=== PATIENT | male | born 1935 | race Caucasian/White ===

== ENCOUNTER 2021-04-15 11:16 | Inpatient (IN) ==
[2021-04-15 17:53] LABS: ABS Eosinophils 0.1 10^3/ul (0-0.6); ABS Lymphocytes 1.9 10^3/ul (1.0-4.8); ABS Monocytes 0.9 10^3/ul (0-0.8); ABS Neutrophils 5.9 10^3/ul (1.5-7.7); Eosinophil % 1.6 %; Hematocrit 33 % (42-52); Mean Corpuscular HGB Conc 34 g/dL (31-36); Mean Corpuscular Hemoglobin 30 pg (27-31); Mean Corpuscular Volume 89 fL (80-94); Mean Platelet Volume 8.8 fL (7.4-10.4); Platelet Count 232 10^3/uL (150-450); Red Blood Count 3.69 10^6 /uL (4.18-5.48); Red Cell Distribution Width 14 % (10-15); White Blood Count 8.8 10^3/uL (3.5-10.8)
[2021-04-15 18:06] LABS: ALT 16 U/L (7-52); AST 16 U/L (13-39); Albumin 4.2 g/dL (3.2-5.2); Albumin/Globulin Ratio 1.6 (1-3); Alkaline Phosphatase 59 U/L (35-149); Anion Gap 10 mmol/L (2-11); Blood Urea Nitrogen 128 mg/dL (6-24); CO2 Carbon Dioxide 21 mmol/L (22-32); Calcium 9.1 mg/dL (8.6-10.3); Chloride 107 mmol/L (101-111); Globulin 2.6 g/dL (2-4); Glucose 144 mg/dL (70-100); Potassium 5.3 mmol/L (3.5-5.0); Sodium 138 mmol/L (135-145); Total Protein 6.8 g/dL (6.4-8.9)
[2021-04-15 18:06] LABS: Urine Appearance Cloudy; Urine Bilirubin Negative (Negative); Urine Blood Negative (Negative); Urine Color Yellow; Urine Glucose Negative (Negative); Urine Ketones Negative (Negative); Urine Nitrite Negative (Negative); Urine Protein 1+(30 mg/dL) (Negative); Urine Specific Gravity 1.011 (1.002-1.030); Urine Urobilinogen Negative (Negative)
[2021-04-15 18:18] LABS: Urine Bacteria Absent (Absent); Urine Red Blood Cell Absent (Absent); Urine Squamous Epithelial Cell Present (Absent); Urine White Blood Cell Trace(0-5/hpf) (Absent)
[2021-04-15] MEDS ORDERED: Magnesium Hydroxide LIQ 30 ML UDC PO PRN (21:15)
[2021-04-15] MEDS ORDERED: Dextrose 50% Syringe 50 ml 25 GM/50 ML SYRINGE IV PUSH PRN (21:24)
[2021-04-15] MEDS ORDERED: NS 0.9% 1000 ml BAG 1,000 ML IV SCH (21:30)
[2021-04-15 21:54] LABS: % Iron Saturation 22 % (15-55); Iron 98 ug/dL (50-212); Total Iron Binding Capacity 449 mcg/dL (250-450); Transferrin 321 mg/dL (203-362); Unsaturated Iron Binding < 434 ug/dL
[2021-04-15 22:20] LABS: Vitamin B12 405 pg/mL (180-914)
[2021-04-15] MEDS: Enoxaparin 30 MG/0.3 ML SYR SUBCUT SCH (22:20)
[2021-04-15 22:21] LABS: Folate 15.56 ng/mL (5.90-24.80)
[2021-04-15 22:48] LABS: Rapid COVID-19 Molecular Undetected (Undetected)
[2021-04-16] MEDS: Fluticasone NASAL SPRAY 50MCG 16 gm SPRAY BTL INTRANASAL SCH (07:35)
[2021-04-16] MEDS: Insulin GLARGINE 100 un/ml 10 ml VIAL SUBCUT SCH (07:35)
[2021-04-16] MEDS: Aspirin EC 81 mg TAB.EC (enteric coated) PO SCH (07:35)
[2021-04-16 08:30] LABS: ABS Eosinophils 0.1 10^3/ul (0-0.6); ABS Lymphocytes 1.3 10^3/ul (1.0-4.8); ABS Monocytes 0.6 10^3/ul (0-0.8); ABS Neutrophils 3.9 10^3/ul (1.5-7.7); Hematocrit 31 % (42-52); Hemoglobin 10.4 g/dL (14.0-18.0); Mean Corpuscular HGB Conc 34 g/dL (31-36); Mean Corpuscular Hemoglobin 30 pg (27-31); Mean Corpuscular Volume 89 fL (80-94); Mean Platelet Volume 8.7 fL (7.4-10.4); Platelet Count 206 10^3/uL (150-450); Red Blood Count 3.46 10^6 /uL (4.18-5.48); Red Cell Distribution Width 14 % (10-15); White Blood Count 5.9 10^3/uL (3.5-10.8)
[2021-04-16 13:26] LABS: Calcium 9.2 mg/dL (8.6-10.3)
[2021-04-16] MEDS: Enoxaparin 30 MG/0.3 ML SYR SUBCUT SCH (21:00)
[2021-04-17 06:59] LABS: Magnesium 2.1 mg/dL (1.9-2.7)
[2021-04-17 07:00] LABS: Potassium 5.3 mmol/L (3.5-5.0)
[2021-04-17] MEDS: Fluticasone NASAL SPRAY 50MCG 16 gm SPRAY BTL INTRANASAL SCH (09:46)
[2021-04-17] MEDS: Insulin GLARGINE 100 un/ml 10 ml VIAL SUBCUT SCH (09:47)
[2021-04-17] MEDS: Aspirin EC 81 mg TAB.EC (enteric coated) PO SCH (09:47)
[2021-04-17 15:56] LABS: Calcium 8.8 mg/dL (8.6-10.3); Potassium 5.2 mmol/L (3.5-5.0)
[2021-04-17 17:01] VITALS: BP 140/49
== END 2021-04-17 17:30 | disposition home or self-care (01) | DRG 684 ==
LOC: ED 11:16 → SUATTDRO 21:15 → MEDTELE 21:15
PROVIDERS: ADMIT Internal Medicine; ATTEND Student in an Organized Health Care Education/Training Program

== ENCOUNTER 2021-11-16 11:29 | Inpatient (IN) ==
[2021-11-16 12:40] LABS: ABS Eosinophils 0.1 10^3/ul (0-0.6); ABS Lymphocytes 1.1 10^3/ul (1.0-4.8); ABS Monocytes 0.8 10^3/ul (0-0.8); Eosinophil % 0.9 %; Hematocrit 32 % (42-52); Hemoglobin 10.4 g/dL (14.0-18.0); Lymphocyte % 12.2 %; Mean Corpuscular HGB Conc 33 g/dL (31-36); Mean Corpuscular Hemoglobin 28 pg (27-31); Mean Corpuscular Volume 85 fL (80-94); Mean Platelet Volume 9.1 fL (7.4-10.4); Platelet Count 234 10^3/uL (150-450); Red Blood Count 3.73 10^6 /uL (4.18-5.48); Red Cell Distribution Width 17 % (10-15)
[2021-11-16 12:46] LABS: INR 1.12 (0.86-1.15)
[2021-11-16] MEDS ORDERED: Furosemide 40 mg/4 ml IV VIAL IV ONE (13:02)
[2021-11-16 13:04] LABS: Urine Appearance Clear; Urine Bacteria Absent (Absent); Urine Bilirubin Negative (Negative); Urine Blood Negative (Negative); Urine Color Yellow; Urine Glucose Negative (Negative); Urine Ketones Negative (Negative); Urine Nitrite Negative (Negative); Urine Protein Negative (Negative); Urine Red Blood Cell Absent (Absent); Urine Specific Gravity 1.009 (1.002-1.030); Urine Urobilinogen Negative (Negative); Urine White Blood Cell Trace(0-5/hpf) (Absent)
[2021-11-16] MEDS ORDERED: Enoxaparin 60 MG/0.6 ML SYR SUBCUT ONE (13:09)
[2021-11-16 13:35] LABS: Albumin 4.4 g/dL (3.2-5.2); C Reactive Protein 7.45 mg/L (<8.01); Calcium 9.4 mg/dL (8.6-10.3); Globulin 2.2 g/dL (2-4); Potassium 4.4 mmol/L (3.5-5.0); Total Bilirubin 0.6 mg/dL (0.2-1.0); Total Protein 6.6 g/dL (6.4-8.9); eGFR CKD-EPI 17.6 (>60)
[2021-11-16 14:13] LABS: High Sensitivity Troponin 1 Hr 9 pg/mL (<20)
[2021-11-16] MEDS ORDERED: Dextrose 50% Syringe 50 ml 25 GM/50 ML SYRINGE IV PUSH PRN (16:26)
[2021-11-16 18:06] LABS: ABS Eosinophils 0.1 10^3/ul (0-0.6); ABS Lymphocytes 1.1 10^3/ul (1.0-4.8); ABS Monocytes 0.8 10^3/ul (0-0.8); ABS Neutrophils 6.3 10^3/ul (1.5-7.7); Eosinophil % 1.2 %; Hematocrit 30 % (42-52); Hemoglobin 9.7 g/dL (14.0-18.0); Lymphocyte % 13.1 %; Mean Corpuscular HGB Conc 33 g/dL (31-36); Mean Corpuscular Hemoglobin 28 pg (27-31); Mean Corpuscular Volume 85 fL (80-94); Platelet Count 225 10^3/uL (150-450); Red Blood Count 3.48 10^6 /uL (4.18-5.48); Red Cell Distribution Width 17 % (10-15); White Blood Count 8.3 10^3/uL (3.5-10.8)
[2021-11-16 18:16] LABS: Activated Partial Thrombo Time 37.9 seconds (26.0-38.0); INR 1.15 (0.86-1.15)
[2021-11-16 18:24] LABS: Ferritin 42.9 ng/mL (24-336)
[2021-11-16 18:39] LABS: eGFR CKD-EPI 17.4 (>60)
[2021-11-16] MEDS: Heparin 5000 UNITS/ML 1 mL VIAL SUBCUT SCH (22:14)
[2021-11-16] MEDS: Furosemide 40 mg/4 ml IV VIAL IV SLOW PU SCH (22:14)
[2021-11-17] MEDS: Heparin 5000 UNITS/ML 1 mL VIAL SUBCUT SCH ×3 (05:15→21:14)
[2021-11-17 06:10] LABS: ABS Eosinophils 0.1 10^3/ul (0-0.6); ABS Lymphocytes 0.9 10^3/ul (1.0-4.8); ABS Monocytes 0.8 10^3/ul (0-0.8); ABS Neutrophils 5.1 10^3/ul (1.5-7.7); Eosinophil % 0.9 %; Hematocrit 29 % (42-52); Hemoglobin 9.2 g/dL (14.0-18.0); Lymphocyte % 13.3 %; Mean Corpuscular HGB Conc 32 g/dL (31-36); Mean Corpuscular Hemoglobin 27 pg (27-31); Mean Corpuscular Volume 84 fL (80-94); Nucleated Red Blood Cells % 0.1; Platelet Count 207 10^3/uL (150-450); Red Blood Count 3.39 10^6 /uL (4.18-5.48); Red Cell Distribution Width 17 % (10-15); White Blood Count 6.9 10^3/uL (3.5-10.8)
[2021-11-17 06:35] LABS: Calcium 8.9 mg/dL (8.6-10.3); Potassium 4.4 mmol/L (3.5-5.0); eGFR CKD-EPI 18.5 (>60)
[2021-11-17 07:33] LABS: HDL Cholesterol 35.3 mg/dL
[2021-11-17] MEDS: Aspirin EC 81 mg TAB.EC (enteric coated) PO SCH (08:48)
[2021-11-17] MEDS: Furosemide 40 mg/4 ml IV VIAL IV SLOW PU SCH ×2 (08:49→21:14)
[2021-11-17] MEDS ORDERED: Ferric Gluconate IV 125 MG in NS 0.9% 100 ml BAG 100 ML IVPB ONE (14:56)
[2021-11-18 00:15] LABS: Urine Appearance Clear; Urine Blood 3+ (Negative); Urine Color Yellow; Urine Ketones Negative (Negative); Urine Protein 1+(30 mg/dL) (Negative); Urine Specific Gravity 1.012 (1.002-1.030); Urine Urobilinogen Negative (Negative); Urine pH 5 (5-9)
[2021-11-18 00:16] LABS: Urine Bilirubin Negative (Negative); Urine Glucose Negative (Negative); Urine Nitrite Negative (Negative)
[2021-11-18 00:41] LABS: Urine Bacteria Absent (Absent); Urine Red Blood Cell 3+(>10/hpf) (Absent); Urine White Blood Cell 1+(6-10/hpf) (Absent)
[2021-11-18] MEDS: Heparin 5000 UNITS/ML 1 mL VIAL SUBCUT SCH ×3 (05:46→21:05)
[2021-11-18 06:38] LABS: ABS Eosinophils 0.2 10^3/ul (0-0.6); ABS Lymphocytes 1.2 10^3/ul (1.0-4.8); ABS Monocytes 0.7 10^3/ul (0-0.8); ABS Neutrophils 3.7 10^3/ul (1.5-7.7); Eosinophil % 2.9 %; Hematocrit 27 % (42-52); Lymphocyte % 20.8 %; Mean Corpuscular HGB Conc 33 g/dL (31-36); Mean Corpuscular Hemoglobin 28 pg (27-31); Mean Corpuscular Volume 84 fL (80-94); Mean Platelet Volume 9.1 fL (7.4-10.4); Platelet Count 209 10^3/uL (150-450); Red Blood Count 3.22 10^6 /uL (4.18-5.48); Red Cell Distribution Width 17 % (10-15); White Blood Count 5.8 10^3/uL (3.5-10.8)
[2021-11-18 06:54] LABS: Potassium 4.1 mmol/L (3.5-5.0)
[2021-11-18] MEDS ORDERED: Iron Sucrose 200 MG in NS 0.9% 100 ml BAG 100 ML IVPB ONE (07:28)
[2021-11-18 07:53] LABS: Calcium 8.8 mg/dL (8.6-10.3)
[2021-11-18 07:59] LABS: eGFR CKD-EPI 19.2 (>60)
[2021-11-18] MEDS: Aspirin EC 81 mg TAB.EC (enteric coated) PO SCH (08:34)
[2021-11-18] MEDS: Furosemide 40 mg/4 ml IV VIAL IV SLOW PU SCH (08:34)
[2021-11-18 16:53] LABS: Body Fluid Appearance Clear; Body Fluid Color Yellow; Body Fluid Source Pleural Fluid
[2021-11-18 17:22] LABS: Body Fluid WBC 159 /mcL
[2021-11-18 17:54] LABS: Body Fluid Mono 56 %; Body Fluid Other Cells 5; Body Fluid Total Cells Counted 200
[2021-11-19] MEDS: Heparin 5000 UNITS/ML 1 mL VIAL SUBCUT SCH ×3 (05:59→21:40)
[2021-11-19 06:07] LABS: ABS Eosinophils 0.2 10^3/ul (0-0.6); ABS Lymphocytes 1.4 10^3/ul (1.0-4.8); ABS Monocytes 0.8 10^3/ul (0-0.8); ABS Neutrophils 4.1 10^3/ul (1.5-7.7); Hematocrit 28 % (42-52); Hemoglobin 9.3 g/dL (14.0-18.0); Lymphocyte % 21.3 %; Mean Corpuscular HGB Conc 33 g/dL (31-36); Mean Corpuscular Hemoglobin 27 pg (27-31); Mean Corpuscular Volume 84 fL (80-94); Mean Platelet Volume 8.6 fL (7.4-10.4); Platelet Count 199 10^3/uL (150-450); Red Blood Count 3.38 10^6 /uL (4.18-5.48); Red Cell Distribution Width 17 % (10-15); White Blood Count 6.5 10^3/uL (3.5-10.8)
[2021-11-19 06:30] LABS: Calcium 8.6 mg/dL (8.6-10.3); Magnesium 1.9 mg/dL (1.9-2.7); Potassium 4.1 mmol/L (3.5-5.0); eGFR CKD-EPI 19.2 (>60)
[2021-11-19] MEDS: Aspirin EC 81 mg TAB.EC (enteric coated) PO SCH (09:13)
[2021-11-19] MEDS ORDERED: Senna TAB 8.6 mg TAB PO PRN (10:37)
[2021-11-19] MEDS: Magnesium Hydroxide LIQ 30 ML UDC PO SCH ×2 (12:28→21:40)
[2021-11-19] MEDS ORDERED: Senna TAB 8.6 mg TAB PO SCH (21:00)
[2021-11-20] MEDS: Heparin 5000 UNITS/ML 1 mL VIAL SUBCUT SCH (05:35)
[2021-11-20 06:48] LABS: ABS Eosinophils 0.2 10^3/ul (0-0.6); ABS Lymphocytes 1.5 10^3/ul (1.0-4.8); ABS Monocytes 0.6 10^3/ul (0-0.8); ABS Neutrophils 3.5 10^3/ul (1.5-7.7); Eosinophil % 3.8 %; Hematocrit 31 % (42-52); Lymphocyte % 25.1 %; Mean Corpuscular HGB Conc 33 g/dL (31-36); Mean Corpuscular Hemoglobin 28 pg (27-31); Mean Corpuscular Volume 85 fL (80-94); Mean Platelet Volume 8.6 fL (7.4-10.4); Platelet Count 232 10^3/uL (150-450); Red Blood Count 3.62 10^6 /uL (4.18-5.48); Red Cell Distribution Width 17 % (10-15); White Blood Count 5.8 10^3/uL (3.5-10.8)
[2021-11-20 06:57] LABS: Calcium 8.9 mg/dL (8.6-10.3); Potassium 4.2 mmol/L (3.5-5.0); eGFR CKD-EPI 22.8 (>60)
[2021-11-20] MEDS: Aspirin EC 81 mg TAB.EC (enteric coated) PO SCH (07:44)
[2021-11-20] MEDS: Magnesium Hydroxide LIQ 30 ML UDC PO SCH ×2 (07:44→07:49)
[2021-11-20] MEDS ORDERED: Iron Sucrose 200 MG in NS 0.9% 100 ml BAG 100 ML IVPB ONE (09:00)
[2021-11-20 11:30] VITALS: BP 133/47
[2021-11-20 13:43] LABS: Glucose, BF 190 mg/dL
[2021-11-20 13:44] LABS: Fluid Type, Amylase PLEURAL
[2021-11-20 13:47] LABS: Lactate Dehydrogenase, BF 72 U/L
[2021-11-20 13:48] LABS: Fluid Type, Protein, Total PLEURAL; Total Protein, BF 2.8 g/dL
== END 2021-11-20 12:45 | disposition home or self-care (01) | DRG 292 ==
LOC: ED 11:29 → EDHOLD 15:33 → MEDTELE 16:23
PROVIDERS: ADMIT Internal Medicine; ATTEND Internal Medicine

== ENCOUNTER 2022-02-21 07:18 | Observation (INO) ==
[2022-02-21] MEDS ORDERED: NS 0.9% 1000 ml BAG 1,000 ML IV ONE (07:47)
[2022-02-21 07:49] LABS: ABS Eosinophils 0.1 10^3/ul (0-0.6); ABS Lymphocytes 1.2 10^3/ul (1.0-4.8); ABS Monocytes 0.8 10^3/ul (0-0.8); ABS Neutrophils 6.1 10^3/ul (1.5-7.7); Eosinophil % 0.8 %; Hematocrit 35 % (42-52); Hemoglobin 11.8 g/dL (14.0-18.0); Lymphocyte % 14.9 %; Mean Corpuscular HGB Conc 34 g/dL (31-36); Mean Corpuscular Hemoglobin 28 pg (27-31); Mean Corpuscular Volume 83 fL (80-94); Platelet Count 249 10^3/uL (150-450); Red Blood Count 4.18 10^6 /uL (4.18-5.48); Red Cell Distribution Width 15 % (10-15); White Blood Count 8.2 10^3/uL (3.5-10.8)
[2022-02-21 08:28] LABS: Albumin 4.1 g/dL (3.2-5.2); Albumin/Globulin Ratio 1.5 (1-3); Calcium 9.4 mg/dL (8.6-10.3); Globulin 2.7 g/dL (2-4); Potassium 3.1 mmol/L (3.5-5.0); Total Bilirubin 0.6 mg/dL (0.2-1.0); Total Protein 6.8 g/dL (6.4-8.9); eGFR CKD-EPI 12.9 (>60)
[2022-02-21 09:20] LABS: High Sensitivity Troponin 1 Hr 17 pg/mL (<20)
[2022-02-21] MEDS ORDERED: Nitroglycerin 0.6 mg TAB SL ONE (09:47)
[2022-02-21] MEDS ORDERED: Nitro 2% OINT (Nitroglycerin) 1 INCH/PAK TOPICAL ONE (10:13)
[2022-02-21] MEDS ORDERED: Potassium EFFERVES 25 meq TAB PO ONE (10:21)
[2022-02-21] MEDS: Heparin 5000 UNITS/ML 1 mL VIAL SUBCUT SCH ×2 (17:06→20:00)
[2022-02-21] MEDS ORDERED: Insulin GLARGINE 100 un/ml 10 ml VIAL SUBCUT SCH (21:00)
[2022-02-21] MEDS ORDERED: Senna TAB 8.6 mg TAB PO SCH (21:00)
[2022-02-22 05:42] LABS: ABS Eosinophils 0.1 10^3/ul (0-0.6); ABS Lymphocytes 1.5 10^3/ul (1.0-4.8); ABS Monocytes 0.7 10^3/ul (0-0.8); Eosinophil % 1.7 %; Hematocrit 30 % (42-52); Hemoglobin 10.3 g/dL (14.0-18.0); Lymphocyte % 23.4 %; Mean Corpuscular HGB Conc 34 g/dL (31-36); Mean Corpuscular Hemoglobin 29 pg (27-31); Mean Corpuscular Volume 84 fL (80-94); Mean Platelet Volume 8.3 fL (7.4-10.4); Platelet Count 222 10^3/uL (150-450); Red Cell Distribution Width 15 % (10-15); White Blood Count 6.3 10^3/uL (3.5-10.8)
[2022-02-22] MEDS: Heparin 5000 UNITS/ML 1 mL VIAL SUBCUT SCH (05:56)
[2022-02-22 06:06] LABS: Calcium 8.8 mg/dL (8.6-10.3); Potassium 3.5 mmol/L (3.5-5.0); eGFR CKD-EPI 13.5 (>60)
[2022-02-22] MEDS ORDERED: Aspirin EC 81 mg TAB.EC (enteric coated) PO SCH (09:00)
[2022-02-22] MEDS ORDERED: Fluticasone NASAL SPRAY 50MCG 16 gm SPRAY BTL INTRANASAL SCH (09:00)
[2022-02-22] MEDS ORDERED: Regadenoson 0.4 MG/5 ML SYRINGE ONE (12:28)
[2022-02-22 13:30] VITALS: BP 123/47
[2022-02-22 13:53] LABS: Urine Appearance Clear; Urine Bilirubin Negative (Negative); Urine Color Colorless; Urine Glucose Negative (Negative); Urine Ketones Negative (Negative); Urine Specific Gravity 1.015 (1.005-1.030)
[2022-02-22 13:54] LABS: Urine Blood Trace (Lysed) (Negative); Urine Nitrite Negative (Negative); Urine Protein 1+ (30 mg/dL) (Negative); Urine Urobilinogen 0.2 (Negative) (Negative)
[2022-02-22 14:27] LABS: Urine Bacteria Absent (Absent); Urine Red Blood Cell Trace(0-2/hpf) (Absent); Urine White Blood Cell Trace(0-5/hpf) (Absent)
== END 2022-02-22 15:30 | disposition home or self-care (01) ==
LOC: EDHOLD 07:18 → ED 07:18 → SUATTDRO 10:53 → EDHOLD 17:37 → MEDTELE 17:49
PROVIDERS: ADMIT Internal Medicine; ATTEND Internal Medicine

== ENCOUNTER 2023-06-17 17:28 | Observation (INO) ==
[2023-06-17 19:43] LABS: ABS Eosinophils 0.1 10^3/uL (0.0-0.5); ABS Lymphocytes 1.8 10^3/uL (1.0-4.8); ABS Monocytes 1.1 10^3/uL (0.0-1.1); ABS Nucleated RBC 0.01 10^3/ul; Eosinophil % 1.1 %; Hemoglobin 13.7 g/dL (13.2-16.3); Lymphocyte % 16.5 %; Mean Corpuscular Hgb Conc 36.1 g/dL (31-36); Mean Corpuscular Volume 85.9 fL (80-97); Mean Platelet Volume 8.5 fL (7.5-11.2); Nucleated Red Blood Cells % 0.1 %/100WBC (0.0-0.8); Platelet Count 283 10^3/uL (150-450); Red Blood Count 4.43 10^6/uL (4.06-5.63); Red Cell Distribution Width 13.8 % (12-17)
[2023-06-17 19:53] LABS: Urine Appearance Clear; Urine Bilirubin Negative (Negative); Urine Blood 1+ (Negative); Urine Color Straw; Urine Glucose 1+(50 mg/dL) (Negative); Urine Ketones Negative (Negative); Urine Nitrite Negative (Negative); Urine Protein Negative (Negative); Urine Specific Gravity 1.006 (1.002-1.030); Urine Urobilinogen Negative (Negative)
[2023-06-17 20:22] LABS: Urine Bacteria Absent (Absent); Urine Red Blood Cell Trace(0-2/hpf) (Absent); Urine White Blood Cell Trace(0-5/hpf) (Absent)
[2023-06-17 20:33] LABS: Calcium 8.9 mg/dL (8.6-10.3); Creatinine, Serum 4.52 mg/dL (0.67-1.17); Magnesium 2.7 mg/dL (1.9-2.7); Potassium 2.4 mmol/L (3.5-5.0); eGFR CKD-EPI 11.8 (>60)
[2023-06-17] MEDS ORDERED: Potassium Chlor 20 meq TAB.ER PO ONE (20:51)
[2023-06-17] MEDS ORDERED: KCL 20 MEQ/100 ML IVPREMIX 20 MEQ/100 ML BAG IV ONE ×2 (20:51→23:19)
[2023-06-17 21:20] LABS: High Sensitivity Troponin 1 Hr 64 pg/mL (<20)
[2023-06-17 21:43] LABS: Albumin 3.9 g/dL (3.2-5.2); Albumin/Globulin Ratio 1.6 (1-3); Globulin 2.5 g/dL (2-4); Total Bilirubin 0.6 mg/dL (0.2-1.0); Total Protein 6.4 g/dL (6.4-8.9)
[2023-06-17] MEDS: Heparin 5000 UNITS/ML 1 mL VIAL SUBCUT SCH (22:32)
[2023-06-17] MEDS ORDERED: Dextrose 50% Syringe 50 ml 25 GM/50 ML SYRINGE IV PUSH PRN (23:26)
[2023-06-17] MEDS ORDERED: Senna TAB 8.6 mg TAB PO PRN (23:48)
[2023-06-18 07:28] LABS: Calcium 8.6 mg/dL (8.6-10.3); Creatinine, Serum 4.58 mg/dL (0.67-1.17); Magnesium 2.7 mg/dL (1.9-2.7); Potassium 2.8 mmol/L (3.5-5.0); eGFR CKD-EPI 11.6 (>60)
[2023-06-18] MEDS: Heparin 5000 UNITS/ML 1 mL VIAL SUBCUT SCH ×3 (07:56→21:51)
[2023-06-18] MEDS: Aspirin EC 81 mg TAB.EC (enteric coated) PO SCH (07:56)
[2023-06-18] MEDS: Psyllium PAK PO SCH (07:56)
[2023-06-18] MEDS ORDERED: Potassium Chlor 20 meq TAB.ER PO ONE ×2 (08:13→12:00)
[2023-06-18] MEDS ORDERED: Insulin GLARGINE 100 un/ml 10 ml VIAL SUBCUT SCH (09:00)
[2023-06-18 16:41] LABS: Glucose Confirmatory 403 mg/dL (70-100)
[2023-06-18] MEDS ORDERED: Insulin GLARGINE 100 un/ml 10 ml VIAL SUBCUT ONE (21:00)
[2023-06-19 07:05] LABS: Hematocrit 38.8 % (38-53); Hemoglobin 13.7 g/dL (13.2-16.3); Mean Corpuscular Hemoglobin 31.1 pg (27-33); Mean Corpuscular Hgb Conc 35.3 g/dL (31-36); Mean Corpuscular Volume 88.2 fL (80-97); Mean Platelet Volume 8.4 fL (7.5-11.2); Platelet Count 250 10^3/uL (150-450); Red Cell Distribution Width 14.3 % (12-17); White Blood Count 7.4 10^3/uL (3.6-10.2)
[2023-06-19] MEDS: Heparin 5000 UNITS/ML 1 mL VIAL SUBCUT SCH ×2 (07:21→13:33)
[2023-06-19 07:30] LABS: Anion Gap 12 mmol/L (2-16); Blood Urea Nitrogen 71 mg/dL (6-24); CO2 Carbon Dioxide 34 mmol/L (22-32); Calcium 8.9 mg/dL (8.6-10.3); Chloride 88 mmol/L (101-111); Creatinine, Serum 4.44 mg/dL (0.67-1.17); Glucose 309 mg/dL (70-100); Sodium 134 mmol/L (135-145)
[2023-06-19] MEDS: Aspirin EC 81 mg TAB.EC (enteric coated) PO SCH (08:41)
[2023-06-19] MEDS: Psyllium PAK PO SCH (08:42)
[2023-06-19 08:47] LABS: Magnesium 2.5 mg/dL (1.9-2.7)
[2023-06-19] MEDS ORDERED: Potassium Chlor 20 meq TAB.ER PO SCH (12:00)
[2023-06-19] MEDS: Heparin 1,000 UNIT/ML 10 ml (10,000 UNITS) CATHLAB/DIALYSIS DIALYSIS SCH (13:24)
[2023-06-19] MEDS ORDERED: KCL 20 MEQ/100 ML IVPREMIX 20 MEQ/100 ML BAG IV ONE (13:40)
[2023-06-19 13:46] VITALS: BP 114/57
[2023-06-19] MEDS ORDERED: Dextrose 50% Syringe 50 ml 25 GM/50 ML SYRINGE IV PUSH PRN (15:06)
[2023-06-19 16:26] LABS: Calcium 9.2 mg/dL (8.6-10.3); Creatinine, Serum 4.48 mg/dL (0.67-1.17); eGFR CKD-EPI 11.9 (>60)
[2023-06-19 16:39] LABS: Potassium 3.6 mmol/L (3.5-5.0)
[2023-06-19] MEDS ORDERED: Insulin GLARGINE 100 un/ml 10 ml VIAL SUBCUT SCH ×2 (21:00)
== END 2023-06-19 16:05 ==
LOC: ED 17:28 → EDHOLD 17:28 → SUATTDRO 22:05 → MEDTELE 06-18 05:31
PROVIDERS: ADMIT Internal Medicine; ATTEND Internal Medicine